=== PATIENT | female | born 1985 | race Asian ===

== ENCOUNTER → 2018-11-17 | Emergency (ER) | payer SELFPAY ==
--- NOTE | 2018-11-17 01:42 | PDOC ---
History of Present Illness - General Stated Complaint: FALL Time Seen by Provider: 11/17/18 00:53 History Source: Patient Exam Limitations: No Limitations - History of Present Illness Initial Comments: 11/17/18 01:40 Best Contact: PCP: DR. Yanez/Aayush Fay Pmhx:0 Pshx:0 Allergies:NKDA FH:0 Social Hx: Cigarettes/ 0 Alcohol/ Social Drugs/0 LMP: 11/14/2018 33-year-old female presents to the emergency department complaining of posterior headache with hematoma to the posterior scalp. Patient states she was dancing on the table when the table gave way causing her to fall back. Patient denies LOC, dizziness, lightheadedness, nausea/vomiting/diarrhea, neck pain/ stiffness, back pains, chest pain, shortness of breath, abdominal pains, flank pains, bladder or bowel dysfunction, ext numbness or tingling sensation. Patient states she had one glass of wine earlier in the evening. Past History - Past Medical History Allergies/Adverse Reactions: Allergies Allergy/AdvReac Type Severity Reaction Status Date / Time No Known Allergies Allergy Verified 11/17/18 02:31 Home Medications: Ambulatory Orders NK [No Known Home Medication] 11/17/18 Review of Systems - Review of Systems Able to Perform ROS?: Yes Comments:: 11/17/18 01:39 CONSTITUTIONAL: Absent: fever, chills, diaphoresis, generalized weakness, malaise, loss of appetite HEENT: Absent: rhinorrhea, nasal congestion, throat pain, throat swelling, difficulty swallowing, mouth swelling, ear pain, eye pain, visual Changes CARDIOVASCULAR: Absent: chest pain, loss of consciousness, palpitations, irregular heart rate, peripheral edema RESPIRATORY: Absent: cough, shortness of breath, dyspnea with exertion, orthopnea, wheezing, stridor, hemoptysis GASTROINTESTINAL: Absent: abdominal pain, abdominal distension, nausea, vomiting, diarrhea, constipation, melena, hematochezia GENITOURINARY: Absent: dysuria, frequency, urgency, hesitancy, hematuria, flank pain, genital pain MUSCULOSKELETAL: Absent: myalgia, arthralgia, joint swelling SKIN: Absent: rash, itching, pallor HEMATOLOGIC/IMMUNOLOGIC: Absent: easy bleeding, easy bruising, lymphadenopathy, frequent infections ENDOCRINE: Absent: unexplained weight gain, unexplained weight loss, heat intolerance, cold intolerance NEUROLOGIC: +posterior silva Absent: focal weakness or paresthesias, dizziness, unsteady gait, seizure, mental status changes, bladder or bowel incontinence Is the patient limited Cymraes proficient: No *Physical Exam - Physical Exam Comments: 11/17/18 01:39 GENERAL: Well developed, well nourished. Awake and alert. No acute distress. HEENT: Normocephalic, atraumatic. PERRLA, EOMI. No conjunctival pallor. Sclera are non- icteric. Moist mucous membranes. Oropharynx is clear. NECK: Supple. Full ROM. No JVD. Carotid pulses 2+ and symmetric, without bruits. No thyromegaly. No lymphadenopathy. CARDIOVASCULAR: Regular rate and rhythm. No murmurs, rubs, or gallops. Distal pulses are 2+ and symmetric. PULMONARY: No evidence of respiratory distress. Lungs clear to auscultation bilaterally. No wheezing, rales or rhonchi. ABDOMINAL: Soft. Non-tender. Non-distended. No rebound or guarding. No organomegaly. Normoactive bowel sounds. MUSCULOSKELETAL Normal range of motion at all joints. No bony deformities or tenderness. No CVA tenderness. EXTREMITIES: No cyanosis. No clubbing. No edema. No calf tenderness. SKIN: Warm and dry. Normal capillary refill. No rashes. No jaundice. NEUROLOGICAL: +Hematoma to posterior scalp Alert, awake, appropriate. Cranial nerves 2-12 intact. No deficits to light touch and temperature in face, upper extremities and lower extremities. No motor deficits in the in face, upper extremities and lower extremities. Normoreflexic in the upper and lower extremities. Normal speech. Toes are down- going bilaterally. Gait is normal without ataxia. PSYCHIATRIC: Cooperative. Good eye contact. Appropriate mood and affect. ED Treatment Course - RADIOLOGY Radiograph Interpretation: 11/17/18 01:41 CT head w/o contrast: neg Progress Note - Progress Note Progress Note: 0209hrs: Pt insisted on leaving. States she will await until she decides to leave. Pt advised me that if I can't locate her later, she would've eloped. *DC/Admit/Observation/Transfer Diagnosis at time of Disposition: Closed head injury Qualifiers: Encounter type: initial encounter Qualified Code(s): S09.90XA - Unspecified injury of head, initial encounter - Discharge Dispostion Disposition: HOME Condition at time of disposition: Stable Decision to Admit order: No - Referrals Referrals: Cam Watson [Non Staff, Medical] - - Patient Instructions Printed Discharge Instructions: DI for Closed Head Injury Additional Instructions: Rest Take tylenol alternate with Motrin for pain Rest Follow up with your physician this week Return to the ER for any concerns - Post Discharge Activity
[2018-11-17 02:32] VITALS: BP 146/74; PULSE 78; TEMP 98.3; BMI 21.2
== END | disposition home or self-care (01) ==
LOC: JER 00:37
DX: S00.83XA Contusion of other part of head, initial encounter (principal); W08.XXXA Fall from other furniture, initial encounter; Y93.41 Activity, dancing; Y92.89 Other specified places as the place of occurrence of the external cause; Y99.8 Other external cause status
CPT/HCPCS: 84703; 99281-25